=== PATIENT | male | born 1995 | race African-American/Black ===

== ENCOUNTER 2025-07-10 08:12 | Emergency (ER) | payer OTHER ==
[~2025-07-10] VITALS: Ht 162.6 cm; Wt 76.5 kg
[2025-07-10] MEDS ORDERED: REFR0.5D8 OU (08:28)
[2025-07-10] MEDS ORDERED: XALA0.007 OU (08:28)
[2025-07-10 10:54] LABS: BASO # 0.1 10^3/uL (0.0-0.2); BASO % 0.8 % (0.0-1.0); EOS # 0.1 10^3/uL (0.0-0.5); EOS % 2.2 % (0.0-3.0); LYMPH # 2.4 10^3/uL (1.5-5.0); LYMPH % 37.9 % (24.0-44.0); MONO # 0.6 10^3/uL (0.0-0.8); MONO % 10.0 % (2.0-8.0); NEUTROPHILS # 3.1 10^3/uL (1.5-8.5); NEUTROPHILS % 48.9 % (36.0-66.0); PLATELET COUNT, AUTOMATED 163 10^3/uL (150-450)
[2025-07-10 10:59] LABS: ERYTHROCYTE SEDIMENTATION RATE 70 mm/hr (0-15)
[2025-07-10 11:19] LABS: C REACTIVE PROTEIN QUANTITATIV 0.71 MG/DL (<1.0)
[2025-07-10 11:20] LABS: ALT/SGPT 21 U/L (7.0-40); AST/SGOT 30 U/L (<34); CALCIUM LEVEL 9.4 MG/DL (8.5-10.1); CARBON DIOXIDE LEVEL 29 MMOL/L (20-31); CHLORIDE LEVEL 101 MMOL/L (98-107); CK-MB VALUE MASS 1.0 NG/ML (<3.6); CREATININE FOR GFR 0.93 MG/DL (0.70-1.30); GLOMERULAR FILTRATION RATE > 90.0 (>60); MAGNESIUM LEVEL 2.1 MG/DL (1.8-2.4); POTASSIUM SERUM 4.3 MMOL/L (3.5-5.1); SODIUM LEVEL 141 MMOL/L (136-145)
[2025-07-10 11:28] LABS: CPK CREATINE PHOSPHOKINASE 236 U/L (46-171); MB/CK RELATIVE INDEX 0.42 (< OR =4)
[2025-07-10 12:09] VITALS: BP 138/94; TEMP 97.1; O2SAT 100
== END 2025-07-10 12:11 | disposition home or self-care (01) ==
LOC: M ED 08:12
DX: R00.2 Palpitations (principal)

== ENCOUNTER → 2025-07-29 | Outpatient (CLI) | payer OTHER ==
[~2025-07-29] MED LIST: REFR0.5D8 OU; XALA0.007 OU
== END ==
LOC: M PLALAB 15:35
PROVIDERS: ATTEND Obstetrics & Gynecology
DX: Z31.440 Encounter of male for testing for genetic disease carrier status for procreative management (principal)